=== PATIENT | female | born 1955 | race Hispanic/Latino ===

== ENCOUNTER 2021-03-14 15:19 | Emergency (ER) | payer SELFPAY ==
--- NOTE | 2021-03-14 17:27 | Emergency Department Report ---
<RAQUEL SANTOS - Last Filed: 03/14/21 19:37> ED Extremity Problem HPI - General Chief complaint: Extremity Injury, Lower Stated complaint: LT KNEE PAINS Time Seen by Provider: 03/14/21 16:02 Source: patient Mode of arrival: Stretcher Limitations: No Limitations - History of Present Illness Initial comments: The patient was evaluated in the emergency department for symptoms described in the history of present illness. He/she was evaluated in the context of the global COVID-19 pandemic, which necessitated consideration that the patient might be at risk for infection with the virus that causes COVID-19. Institutional protocols and algorithms that pertain to the evaluation of patients at risk for COVID-19 are in a state of rapid change based on information released by regulatory bodies including the CDC and federal and state organizations. These policies and algorithms were followed during the patient's care in the emergency department. Please note that these policies, procedures and recommendations changed on a rapid basis. 65-year-old female presents to the emergency room complaining of a sore throat since Wednesday. Patient states that it is painful to swallow. Patient also comes in complaining of left knee pain and swelling and feels a little warm to her. Patient denies any chest pain denies any shortness of breath. Patient denies any trauma to her left knee. Patient is partially vacci nated as of her last vaccine February 19. Next is due March 19. Patient states that she feels dehydrated. MD Complaint: extremity pain, extremity swelling, joint paint Location: left, knee History of Same: No Severity scale (0 -10): 9 Quality: stabbing, sharp Consistency: constant Improves with: nothing Worsens with: weight bearing, walking Associated Symptoms: denies other symptoms, other (sore throat) - Related Data Allergies Allergy/AdvReac Type Severity Reaction Status Date / Time acetaminophen Allergy Swelling Verified 03/14/21 21:26 hydrocodone Allergy Swelling Verified 03/14/21 15:34 ED Review of Systems Comment: All other systems reviewed and negative ED Physical Exam - General Limitations: No Limitations General appearance: alert, in no apparent distress - Head Head exam: Present: atraumatic, normocephalic - Eye Eye exam: Present: normal appearance - ENT ENT exam: Present: mucous membranes moist, TM's normal bilaterally - Expanded ENT Exam Expanded Throat exam: Positive: normal inspection. Negative: tonsillar exudate - Neck Neck exam: Present: normal inspection, full ROM - Respiratory Respiratory exam: Present: normal lung sounds bilaterally. Absent: chest wall tenderness, accessory muscle use - Cardiovascular Cardiovascular Exam: Present: regular rate - Expanded Lower Extremity Exam Left Upper Leg exam: Present: normal inspection Knee exam: Present: full ROM, tenderness, swelling, effusion. Absent: deformity Lower Leg exam: Present: normal inspection, full ROM. Absent: tenderness, swelling Ankle exam: Present: normal inspection, full ROM. Absent: tenderness Foot/Toe exam: Present: normal inspection, full ROM Neuro vascular tendon exam: Present: no vascular compromise - Back Exam Back exam: Present: normal inspection, full ROM - Neurological Exam Neurological exam: Present: alert, oriented X3 - Psychiatric Psychiatric exam: Present: normal affect, normal mood - Skin Skin exam: Present: warm, dry, intact, normal color. Absent: rash ED Medical Decision Making - Lab Data Result diagrams: 03/14/21 17:48 03/14/21 17:48 - Radiology Data Radiology results: report reviewed [address] [address] XRay Report Signed Patient: PRATEEK HELLER MR#: [id number] : 1955 Acct:[id number] Age/Sex: 65 / F ADM Date: 03/14/21 Loc: ED Attending Dr: Ordering Physician: YOUSIF STOCKTON Date of Service: 03/14/21 Procedure(s): XR knee 1-2V LT Accession Number(s): [id number] cc: YOUSIF STOCKTON Fluoro Time In Minutes: LEFT KNEE 2 VIEW(S) INDICATION / CLINICAL INFORMATION: Knee pain and swelling COMPARISON: None available. FINDINGS: BONES / JOINT(S): No acute fracture or subluxation. Moderate tricompartmental arthrosis with moderate joint effusion SOFT TISSUES: No significant abnormality. ADDITIONAL FINDINGS: None. Signer Name: Eyad Gutierrez MD Signed: 03/14/2021 5:28 PM Workstation Name: [id number] Transcribed By: TL Dictated By: Eyad Gutierrez MD Electronically Authenticated By: Eyad Gutierrez MD Signed Date/Time: 03/14/211727 DD/ 25 TD/TT: - Medical Decision Making 65-year-old female presents to the emergency room complaining of a sore throat since Wednesday. Patient states that it is painful to swallow. Patient also comes in complaining of left knee pain and swelling and feels a little warm to her. Patient denies any chest pain denies any shortness of breath. Patient denies any trauma to her left knee. Patient is partially vaccinated as of her last vaccine February 19. Next was due March 19. Patient states that she feels dehydrated. X-ray of left knee has been ordered, CBC CMP and rapid strep has been ordered. Strep negative, elevated WBC of 15.4 K+3.3 glucose 191. Xray shows Moderate effusion. - Differential Diagnosis Strep throat, septic arthritis, Covid ED Disposition Clinical Impression: SIRS (systemic inflammatory response syndrome), Monoarthritis of left knee, Knee effusion, left Disposition: 02 SHORT TERM HOSPITAL Condition: Serious Referrals: ANA ELIZALDE MD [Primary Care Provider] - 3-5 Days <STEPHANIE BONILLA - Last Filed: 03/15/21 02:18> ED Review of Systems ROS: Stated complaint: LT KNEE PAINS Other details as noted in HPI ED Course Vital Signs 03/14/21 15:28 Temperature 98.4 F Pulse Rate 94 H Respiratory 18 Rate Blood Pressure 138/55 O2 Sat by Pulse 96 Oximetry - Reevaluation(s) Reevaluation #1: 03/14/21 23:59 Arthrocentesis suggestive of septic joint. This hospital/emergency room does not have orthopedics available for consultation. I discussed this extensively with the patient. [place] [facility] on diversion. The patient stated she did not want to go to [facility] only excepting traumas at this time. Have reached out to [facility] [place], awaiting callback to discuss with their orthopedist. Blood cultures and lactic acid ordered. Will discuss antibiotic administration with consulting orthopedist 03/15/21 00:30 Contacted [facility] at 11: 45 PM. Still awaiting callback. Reached out to [facility]. They advised to have no available beds in any of their hospitals. We will reach out to [facility]. 03/15/21 00:49 called [facility] could not get in touch with a human to answer the phone. 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 03/15/21 01:41 [address] [facility]. no answer. left message for call back calling [facility] 03/15/21 01:44 [facility] not accepting at this time 03/15/21 01:46 [facility] not accepting any transfers. 03/15/21 02:18 Contacted [facility] in [place]. Discussed the case with orthopedics, Dr. Royal, and ER physician, Dr. Velazquez. Discussed the patient's history, physical, laboratory studies and imaging studies and clinical impression. Dr. Royal graciously agrees to consult on this patient, and advises that his group can evaluate the patient and determine need for surgical washout if necessary. Dr. Tami Velazuqez will be the accepting physician. The patient is updated. She is agreeable to this plan of care. - Joint Aspiration/Injection Consent Obtained: verbal consent Time Out Performed: Yes Indications: R/O septic arthritis Side of Body: left Joint Aspirated: knee Ultrasound Guidance: No Skin Prep: sterile prep and drape Local Anesthesia Used: Bupivicaine 0.5% Amount of Anesthesia Used (mls): 6 Needle Size Used: 18G Syringe Size Used: 10cc Fluid Obtained: turbid Total Fluid Obtained (mls): 10 Patient Tolerated Procedure: well Complications: none Additional Comments: Verbal and written consent obtained from patient to perform left-sided arthrocentesis for new onset left-sided monoarticular arthritis. After an extensive and thorough discussion of risks, benefits and alternatives, the left knee is anesthetized with 5 to 6 cc of 0.5% bupivacaine. The knee is sterilized with Betadine and sterile drapes, and propped up at 20 degrees under towels. Provider donned sterile gloves, and aspirated approximately 9 to 10 cc of turbid fluid from the medial aspect of the left knee. The patient tolerated the procedure well. Fluid analysis is pending. All questions answered. Estimated blood loss: 0 cc ED Medical Decision Making - Lab Data Result diagrams: 03/14/21 17:48 03/14/21 17:48 Vital Signs 03/14/21 15:28 Temperature 98.4 F Pulse Rate 94 H Respiratory 18 Rate Blood Pressure 138/55 O2 Sat by Pulse 96 Oximetry Lab Results 03/14/21 03/14/21 03/14/21 Range/Units 17:48 17:48 17:48 WBC 15.4 H (4.5-11.0) K/mm3 RBC 4.52 (3.65-5.03) M/mm3 Hgb 13.3 (10.1-14.3) gm/dl Hct 39.2 (30.3-42.9) % MCV 87 (79-97) fl MCH 29 (28-32) pg MCHC 34 (30-34) % RDW 14.4 (13.2-15.2) % Plt Count 254 (140-440) K/mm3 Lymph % (Auto) 6.1 L (13.4-35.0) % Ponce % (Auto) 9.6 H (0.0-7.3) % Eos % (Auto) 0.1 (0.0-4.3) % Baso % (Auto) 0.2 (0.0-1.8) % Lymph # (Auto) 0.9 L (1.2-5.4) K/mm3 Ponce # (Auto) 1.5 H (0.0-0.8) K/mm3 Eos # (Auto) 0.0 (0.0-0.4) K/mm3 Baso # (Auto) 0.0 (0.0-0.1) K/mm3 Seg Neutrophils % 84.0 H (40.0-70.0) % Seg Neutrophils # 12.9 H (1.8-7.7) K/mm3 ESR (0-20) mm/Hr Sodium 135 L (137-145) mmol/L Potassium 3.3 L (3.6-5.0) mmol/L Chloride 96.0 L (98-107) mmol/L Carbon Dioxide 24 (22-30) mmol/L Anion Gap 18 mmol/L BUN 10 (7-17) mg/dL Creatinine 0.5 L (0.6-1.2) mg/dL Estimated GFR > 60 ml/min BUN/Creatinine Ratio 20 % Glucose 191 H (65-100) mg/dL Lactic Acid 1.20 (0.7-2.0) mmol/L Calcium 9.7 (8.4-10.2) mg/dL Total Bilirubin 0.60 (0.1-1.2) mg/dL AST 17 (5-40) units/L ALT 14 (7-56) units/L Alkaline Phosphatase 85 (35-129) units/L Total Protein 8.1 (6.3-8.2) g/dL Albumin 3.9 (3.9-5) g/dL Albumin/Globulin Ratio 0.9 % Fluid Type Fluid Color Fluid Appearance Fluid WBC /mm3 Fluid RBC /mm3 Fluid Seg Neutrophils % Fluid Lymphocytes % Fluid Reactive Lymphs Fluid Monocytes % Fluid Eosinophils Fluid Basophils Synovial Crystals (NONE SEEN) Group A Strep Rapid (Negative) 03/14/21 03/14/21 03/14/21 Range/Units 21:02 Unknown Unknown WBC (4.5-11.0) K/mm3 RBC (3.65-5.03) M/mm3 Hgb (10.1-14.3) gm/dl Hct (30.3-42.9) % MCV (79-97) fl MCH (28-32) pg MCHC (30-34) % RDW (13.2-15.2) % Plt Count (140-440) K/mm3 Lymph % (Auto) (13.4-35.0) % Ponce % (Auto) (0.0-7.3) % Eos % (Auto) (0.0-4.3) % Baso % (Auto) (0.0-1.8) % Lymph # (Auto) (1.2-5.4) K/mm3 Ponce # (Auto) (0.0-0.8) K/mm3 Eos # (Auto) (0.0-0.4) K/mm3 Baso # (Auto) (0.0-0.1) K/mm3 Seg Neutrophils % (40.0-70.0) % Seg Neutrophils # (1.8-7.7) K/mm3 ESR 64 (0-20) mm/Hr Sodium (137-145) mmol/L Potassium (3.6-5.0) mmol/L Chloride (98-107) mmol/L Carbon Dioxide (22-30) mmol/L Anion Gap mmol/L BUN (7-17) mg/dL Creatinine (0.6-1.2) mg/dL Estimated GFR ml/min BUN/Creatinine Ratio % Glucose (65-100) mg/dL Lactic Acid (0.7-2.0) mmol/L Calcium (8.4-10.2) mg/dL Total Bilirubin (0.1-1.2) mg/dL AST (5-40) units/L ALT (7-56) units/L Alkaline Phosphatase (35-129) units/L Total Protein (6.3-8.2) g/dL Albumin (3.9-5) g/dL Albumin/Globulin Ratio % Fluid Type Synovial Fluid Color Straw Fluid Appearance Turbid Fluid WBC 912173 /mm3 Fluid RBC 71520 /mm3 Fluid Seg Neutrophils 87.0 % Fluid Lymphocytes 4.0 % Fluid Reactive Lymphs Not Reportable Fluid Monocytes 9.0 % Fluid Eosinophils Not Reportable Fluid Basophils Not Reportable Synovial Crystals Negative (NONE SEEN) Group A Strep Rapid Negative (Negative) Critical Care Time: Yes Critical care time in (mins) excluding proc time.: 180 Critical care attestation.: If time is entered above; I have spent that time in minutes in the direct care of this critically ill patient, excluding procedure time. Critical Care Time: Critical care time includes multiple bedside reevaluations, interpretation of laboratory studies, radiology studies, and time spent contacting multiple fac ilities to arrange transfer for patient who is ruling in for systemic inflammatory response syndrome, requiring consultation with orthopedic surgery, which is not available for ER consultation at this time ED Disposition Is pt being admited?: No Does the pt Need Aspirin: No
--- NOTE | 2021-03-14 17:32 | XRay Report ---
LEFT KNEE 2 VIEW(S) INDICATION / CLINICAL INFORMATION: Knee pain and swelling COMPARISON: None available. FINDINGS: BONES / JOINT(S): No acute fracture or subluxation. Moderate tricompartmental arthrosis with moderate joint effusion SOFT TISSUES: No significant abnormality. ADDITIONAL FINDINGS: None. Signer Name: Eyad Gutierrez MD Signed: 03/14/2021 5:28 PM Workstation Name: [id number]
[2021-03-14] MEDS ORDERED: IBUPROFEN 600 MG TAB PO ONE (18:34)
[2021-03-14 18:40] LABS: Basophils % (Auto) 0.2 % (0.0-1.8); Eosinophils % (Auto) 0.1 % (0.0-4.3); Hematocrit 39.2 % (30.3-42.9); Hemoglobin 13.3 gm/dl (10.1-14.3); Lymphocytes # (Auto) 0.9 K/mm3 (1.2-5.4); Lymphocytes % (Auto) 6.1 % (13.4-35.0); Mean Corpuscular HGB Conc 34 % (30-34); Mean Corpuscular Volume 87 fl (79-97); Monocytes # (Auto) 1.5 K/mm3 (0.0-0.8); Monocytes % (Auto) 9.6 % (0.0-7.3); Platelet Count 254 K/mm3 (140-440); Red Blood Count 4.52 M/mm3 (3.65-5.03); Red Cell Distribution Width 14.4 % (13.2-15.2)
[2021-03-14 18:46] LABS: Alanine Aminotransferase 14 units/L (7-56); Albumin 3.9 g/dL (3.9-5); Blood Urea Nitrogen 10 mg/dL (7-17); Calcium 9.7 mg/dL (8.4-10.2); Hemolysis Index 9
[2021-03-14 18:52] LABS: BUN/Creatinine Ratio 20
[2021-03-14] MEDS ORDERED: BUPIVACAINE-EPINEPHRINE/PF 0.5%-1:200,000 (30 ML) VIAL INFILTRATI ONE (20:00)
[2021-03-14] MEDS ORDERED: ACETAMINOPHEN 325 MG TAB PO ONE (21:00)
--- NOTE | 2021-03-14 21:23 | Event Note ---
Date of service: 03/14/21 Face to Face: The patient was evaluated in the emergency department for symptoms described in the history of present illness. He/she was evaluated in the context of the global COVID-19 pandemic, which necessitated consideration that the patient might be at risk for infection with the virus that causes COVID-19. Institutional protocols and algorithms that pertain to the evaluation of patients at risk for COVID-19 are in a state of rapid change based on information released by regulatory bodies including the CDC and federal and state organizations. These policies and algorithms were followed during the patient's care in the emergency department. Please note that these policies, procedures and recommendations changed on a rapid basis. [id number] evaluation performed. Patient is a 65-year-old female, presenting with new onset atraumatic left-sided monoarticular arthritis of the knee. She has pain with passive range of motion of the knee. The knee is warm. She has a white count of 15. The patient denies IV drug use. She denies headache, neck pain, chest pain, abdominal pain. She lives at home with family, has 2 steps, and walks with a walker and sometimes wheelchair. Patient provided written and informed consent for left-sided knee arthrocentesis. Please see my procedure note. We will treat the patient's pain. Disposition as per knee arthrocentesis. Vital Signs 03/14/21 15:28 Temperature 98.4 F Pulse Rate 94 H Respiratory 18 Rate Blood Pressure 138/55 O2 Sat by Pulse 96 Oximetry Lab Results 03/14/21 03/14/21 03/14/21 Range/Units 17:48 17:48 17:48 WBC 15.4 H (4.5-11.0) K/mm3 RBC 4.52 (3.65-5.03) M/mm3 Hgb 13.3 (10.1-14.3) gm/dl Hct 39.2 (30.3-42.9) % MCV 87 (79-97) fl MCH 29 (28-32) pg MCHC 34 (30-34) % RDW 14.4 (13.2-15.2) % Plt Count 254 (140-440) K/mm3 Lymph % (Auto) 6.1 L (13.4-35.0) % [place] % (Auto) 9.6 H (0.0-7.3) % Eos % (Auto) 0.1 (0.0-4.3) % Baso % (Auto) 0.2 (0.0-1.8) % Lymph # (Auto) 0.9 L (1.2-5.4) K/mm3 [place] # (Auto) 1.5 H (0.0-0.8) K/mm3 Eos # (Auto) 0.0 (0.0-0.4) K/mm3 Baso # (Auto) 0.0 (0.0-0.1) K/mm3 Seg Neutrophils % 84.0 H (40.0-70.0) % Seg Neutrophils # 12.9 H (1.8-7.7) K/mm3 Sodium 135 L (137-145) mmol/L Potassium 3.3 L (3.6-5.0) mmol/L Chloride 96.0 L (98-107) mmol/L Carbon Dioxide 24 (22-30) mmol/L Anion Gap 18 mmol/L BUN 10 (7-17) mg/dL Creatinine 0.5 L (0.6-1.2) mg/dL Estimated GFR > 60 ml/min BUN/Creatinine Ratio 20 % Glucose 191 H (65-100) mg/dL Lactic Acid 1.20 (0.7-2.0) mmol/L Calcium 9.7 (8.4-10.2) mg/dL Total Bilirubin 0.60 (0.1-1.2) mg/dL AST 17 (5-40) units/L ALT 14 (7-56) units/L Alkaline Phosphatase 85 (35-129) units/L Total Protein 8.1 (6.3-8.2) g/dL Albumin 3.9 (3.9-5) g/dL Albumin/Globulin Ratio 0.9 % Group A Strep Rapid (Negative) 03/14/21 Range/Units Unknown WBC (4.5-11.0) K/mm3 RBC (3.65-5.03) M/mm3 Hgb (10.1-14.3) gm/dl Hct (30.3-42.9) % MCV (79-97) fl MCH (28-32) pg MCHC (30-34) % RDW (13.2-15.2) % Plt Count (140-440) K/mm3 Lymph % (Auto) (13.4-35.0) % [place] % (Auto) (0.0-7.3) % Eos % (Auto) (0.0-4.3) % Baso % (Auto) (0.0-1.8) % Lymph # (Auto) (1.2-5.4) K/mm3 [place] # (Auto) (0.0-0.8) K/mm3 Eos # (Auto) (0.0-0.4) K/mm3 Baso # (Auto) (0.0-0.1) K/mm3 Seg Neutrophils % (40.0-70.0) % Seg Neutrophils # (1.8-7.7) K/mm3 Sodium (137-145) mmol/L Potassium (3.6-5.0) mmol/L Chloride (98-107) mmol/L Carbon Dioxide (22-30) mmol/L Anion Gap mmol/L BUN (7-17) mg/dL Creatinine (0.6-1.2) mg/dL Estimated GFR ml/min BUN/Creatinine Ratio % Glucose (65-100) mg/dL Lactic Acid (0.7-2.0) mmol/L Calcium (8.4-10.2) mg/dL Total Bilirubin (0.1-1.2) mg/dL AST (5-40) units/L ALT (7-56) units/L Alkaline Phosphatase (35-129) units/L Total Protein (6.3-8.2) g/dL Albumin (3.9-5) g/dL Albumin/Globulin Ratio % Group A Strep Rapid Negative (Negative) [facility] [address] [place] [address] XRay Report Signed Patient: PRATEEK HELLER MR#: [id number] : 1955 Acct:[id number] Age/Sex: 65 / F ADM Date: 03/14/21 Loc: ED Attending Dr: Ordering Physician: YOUSIF STOCKTON Date of Service: 03/14/21 Procedure(s): XR knee 1-2V LT Accession Number(s): [id number] cc: YOUSIF STOCKTON Fluoro Time In Minutes: LEFT KNEE 2 VIEW(S) INDICATION / CLINICAL INFORMATION: Knee pain and swelling COMPARISON: None available. FINDINGS: BONES / JOINT(S): No acute fracture or subluxation. Moderate tricompartmental arthrosis with moderate joint effusion SOFT TISSUES: No significant abnormality. ADDITIONAL FINDINGS: None. Signer Name: Eyad Gutierrez MD Signed: 03/14/2021 5:28 PM Workstation Name: [id number] Transcribed By: TL Dictated By: Eyad Gutierrez MD Electronically Authenticated By: Eyad Gutierrez MD Signed Date/Time: 03/14/211727 DD/ 25
[2021-03-14] MEDS ORDERED: POTASSIUM CHLORIDE ER 20 MEQ TAB PO ONE (22:49)
[2021-03-14] MEDS ORDERED: KETOROLAC 30 MG/1 ML INJ IV ONE (23:06)
[2021-03-14 23:31] LABS: Total Cells Counted 100 /mm3
[2021-03-14] MEDS ORDERED: LACTATED RINGERS 1,000 ML IV ONE (23:42)
[2021-03-15] MEDS ORDERED: cefTRIAXone/NS 1 GM/50 ML 1 GM/50 ML BAG IV ONE (01:01)
[2021-03-15] MEDS ORDERED: VANCOMYCIN 1,750 MG in SODIUM CHLORIDE 0.9% 500 ML 500 ML IV ONE (01:01)
[2021-03-15] MEDS ORDERED: ONDANSETRON 4 MG/2 ML INJ ONE (07:32)
[2021-03-15] MEDS ORDERED: MORPHINE 4 MG/1 ML INJ ONE ×2 (07:33→11:51)
[2021-03-15] MEDS ORDERED: MORPHINE 4 MG/1 ML INJ IV ONE ×2 (07:47→11:55)
[2021-03-15] MEDS ORDERED: ONDANSETRON 4 MG/2 ML INJ IV ONE (07:47)
[2021-03-15 11:48] VITALS: BP 115/57
== END 2021-03-15 12:00 | disposition short-term general hospital (02) ==
LOC: ED 15:19
DX: M17.12 Unilateral primary osteoarthritis, left knee (principal); M25.462 Effusion, left knee; R65.10 Systemic inflammatory response syndrome (SIRS) of non-infectious origin without acute organ dysfunction; Z88.2 Allergy status to sulfonamides; Z88.1 Allergy status to other antibiotic agents; Z88.8 Allergy status to other drugs, medicaments and biological substances; Z79.899 Other long term (current) drug therapy
CPT/HCPCS: 20610; 36415; 73560; 80053; 82140; 85025; 85048; 85652; 86140; 87040; 87116; 87430; 89051; 96361; 96365; 96366; 96367; 96375; 96376; 99291; 99292; J0696; J1885; J2270; J2405; J3370; J7040; 99285